=== PATIENT | male | born 1990 | race Caucasian/White ===

== ENCOUNTER → 2024-02-07 | Outpatient (CLI) | payer BC | LOC: M RAD 10:47 | PROVIDERS: ATTEND Pediatrics | DX: R74.01 Elevation of levels of liver transaminase levels (principal) ==

== ENCOUNTER 2025-07-04 09:54 | Emergency (ER) | payer BC ==
[~2025-07-04] VITALS: Ht 170.2 cm; Wt 79.3 kg
[2025-07-04 10:04] VITALS: BP 146/76; TEMP 97.1; O2SAT 99
[2025-07-04] MEDS ORDERED: AMPH1TAB2 (10:13)
[2025-07-04] MEDS ORDERED: TIRZ5PEN3 INJ (10:13)
[2025-07-04] MEDS ORDERED: AMPH1CAP5 PO (10:13)
[2025-07-04] MEDS ORDERED: MED REC COMMENT (13:11)
[2025-07-04] MEDS ORDERED: HOME MED LIST COMPLETE! XX SCH (13:15)
[2025-07-04 14:09] LABS: KETONE, URINE AUTO RFX 2+ mg/dL (NEGATIVE); LEUKOCYTE ESTERASE UR AUTO RFX NEGATIVE (NEGATIVE); MUCUS, URINE RFX SMALL (NEGATIVE); NITRITE, URINE AUTO RFX NEGATIVE (NEGATIVE); RBC, URINE AUTO RFX 1 /HPF (0-3); SQUAM EPITHELIAL CELL UR AURFX 0 /HPF (0-6); WBC, URINE AUTO RFX 0 /HPF (0-3)
[2025-07-04 20:22] LABS: Trichomonas vaginalis (AMP) NOT DETECTED (NEGATIVE)
[2025-07-04 20:45] LABS: GC DNA AMPLIFICATION NEGATIVE (NEGATIVE)
== END 2025-07-04 14:53 | disposition home or self-care (01) ==
LOC: M ED 09:54
DX: Q53.112 Unilateral inguinal testis (principal); N50.3 Cyst of epididymis